=== PATIENT | female | born 1940 | race Caucasian/White ===

== ENCOUNTER → 2016-11-08 | Outpatient (CLI) | payer MEDICARE, BC | LOC: RAD 10:21 | DX: G62.9 Polyneuropathy, unspecified (principal); E78.2 Mixed hyperlipidemia; E61.1 Iron deficiency; M06.89 Other specified rheumatoid arthritis, multiple sites; M85.80 Other specified disorders of bone density and structure, unspecified site; E53.8 Deficiency of other specified B group vitamins ==

== ENCOUNTER 2016-11-11 07:29 | Outpatient (RCR) | payer MEDICARE, BC ==
[2014-04-18 10:28] VITALS: BP 129/68
== END 2016-12-16 11:39 | disposition home or self-care (01) ==
LOC: PT 07:29
DX: R53.1 Weakness (principal); M54.2 Cervicalgia; M06.89 Other specified rheumatoid arthritis, multiple sites

== ENCOUNTER → 2016-11-24 | Outpatient (CLI) | payer MEDICARE, BC | LOC: RAD 10:26 | DX: M85.80 Other specified disorders of bone density and structure, unspecified site (principal); M81.0 Age-related osteoporosis without current pathological fracture ==

== ENCOUNTER → 2016-11-24 | Outpatient (CLI) | payer MEDICARE, BC | LOC: MAMMO 10:27 | DX: Z12.31 Encounter for screening mammogram for malignant neoplasm of breast (principal); C50.911 Malignant neoplasm of unspecified site of right female breast; Z90.11 Acquired absence of right breast and nipple | CPT/HCPCS: G0202 ==

== ENCOUNTER → 2016-11-30 | Outpatient (CLI) | payer MEDICARE, BC | LOC: LAB 11:37 | DX: R30.0 Dysuria (principal) ==

== ENCOUNTER → 2017-02-09 | Outpatient (CLI) | payer MEDICARE, BC ==
[2014-04-18 10:28] VITALS: BP 129/68
== END ==
LOC: RAD 12:13
DX: R05 Cough (principal); R06.02 Shortness of breath

== ENCOUNTER → 2017-04-22 | Outpatient (CLI) | payer MEDICARE, BC ==
[2014-04-18 10:28] VITALS: BP 129/68
== END ==
LOC: LAB 13:24
DX: L99 Other disorders of skin and subcutaneous tissue in diseases classified elsewhere (principal)

== ENCOUNTER 2017-12-18 14:00 | Emergency (ER) | payer MEDICARE, BC ==
[~2017-12-18] VITALS: Ht 160 cm; Wt 74.1 kg
[2017-12-18] MEDS ORDERED: CALCIUM500 M1 (14:19)
[2017-12-18] MEDS ORDERED: TEMAZEPAM7.5 M1 (14:19)
[2017-12-18] MEDS ORDERED: D-1000 185 MG-11 TAB (14:19)
[2017-12-18] MEDS ORDERED: MUCINEX 60600 MG/TA1 PO (14:20)
[2017-12-18 14:54] LABS: EOS % 0.3 % (1.0-5.0); HEMATOCRIT 38.3 % (37.0-47.0); HEMOGLOBIN 12.7 g/dL (12.5-16.0); LYMPH# 1.5 (1.50-4.00); MEAN CELL VOLUME 87 fl (78-100); MEAN CORPUSCULAR HEMOGLOBIN 29 pg (27-31); MEAN CORPUSCULAR HGB CONC 33 g/dL (33-37); MEAN PLATELET VOLUME 9.8 fl (7.4-10.4); MONO # 0.6 (0.20-0.80); NEU # 3.9 (1.40-6.50); PLATELET COUNT 258 K/mm3 (130-400); RED BLOOD COUNT 4.43 M/mm3 (4.10-5.30); RED CELL DISTRIBUTION WIDTH 13.1 % (11.5-14.5)
[2017-12-18 15:04] LABS: BUN/CREATININE RATIO 13.2 (6.0-26.0); CALCIUM 9.6 mg/dL (8.4-10.2); POTASSIUM 3.6 mmol/L (3.6-5.0)
[2017-12-18 16:02] VITALS: BP 103/56
[2017-12-18] MEDS ORDERED: PREDNISONE20 M1 PO (16:03)
[2017-12-18] MEDS ORDERED: CEPHALEXIN500 M2 PO (16:03)
== END 2017-12-18 16:24 | disposition home or self-care (01) ==
LOC: ED 14:00
PROVIDERS: Family Medicine
DX: J44.1 Chronic obstructive pulmonary disease with (acute) exacerbation (principal); Z87.891 Personal history of nicotine dependence; K30 Functional dyspepsia

== ENCOUNTER → 2017-12-29 | Outpatient (CLI) | payer MEDICARE, BC ==
[~2017-12-29] VITALS: Ht 165.1 cm; Wt 72.7 kg
[~2017-12-29] MED LIST: CALCIUM500 M1; CEPHALEXIN500 M2 PO; D-1000 185 MG-11 TAB; MUCINEX 60600 MG/TA1 PO; PREDNISONE20 M1 PO; TEMAZEPAM7.5 M1
[2017-12-29 11:13] LABS: HEMATOCRIT 39.6 % (37.0-47.0); HEMOGLOBIN 12.4 g/dL (12.5-16.0); MEAN CELL VOLUME 90 fl (78-100); MEAN CORPUSCULAR HEMOGLOBIN 28 pg (27-31); MEAN CORPUSCULAR HGB CONC 31 g/dL (33-37); MEAN PLATELET VOLUME 9.2 fl (7.4-10.4); PLATELET COUNT 288 K/mm3 (130-400); RED BLOOD COUNT 4.38 M/mm3 (4.10-5.30); RED CELL DISTRIBUTION WIDTH 14.4 % (11.5-14.5); WHITE BLOOD COUNT 9.9 K/mm3 (4.8-10.8)
[2017-12-29 11:30] LABS: BUN/CREATININE RATIO 17.2 (6.0-26.0); CALCIUM 9.3 mg/dL (8.4-10.2); D-DIMER 3.11 mg/L FEU (0.15-0.50); POTASSIUM 3.7 mmol/L (3.6-5.0); TOTAL BILIRUBIN 0.7 mg/dL (0.2-1.3); TOTAL PROTEIN 7.9 g/dL (6.3-8.2)
[2017-12-29 11:40] VITALS: BP 140/61
[2017-12-29 11:40] LABS: TROPONIN-I < 0.03 ng/mL (0.00-0.06)
[2017-12-29 12:33] LABS: LYMPHOCYTE 15 % (20-51); MONOCYTE 5 % (3-10); NEUTROPHILS 78 % (42-75)
[2017-12-29 12:35] LABS: ERYTHROCYTE SEDIMENTATION RATE 13 mm/hr (0-30)
== END ==
LOC: LAB 10:48
PROVIDERS: Nurse Practitioner Family
DX: J44.9 Chronic obstructive pulmonary disease, unspecified (principal); I51.7 Cardiomegaly; I77.810 Thoracic aortic ectasia; R91.1 Solitary pulmonary nodule; Z87.19 Personal history of other diseases of the digestive system
CPT/HCPCS: Q9967

== ENCOUNTER → 2018-01-31 | Outpatient (CLI) | payer MEDICARE, BC ==
[2017-12-29 11:40] VITALS: BP 140/61
[2018-01-31 14:01] LABS: EOS # 0.1 (0.04-0.40); EOS % 1.1 % (1.0-5.0); HEMOGLOBIN 12.5 g/dL (12.5-16.0); LYMPH# 1.6 (1.50-4.00); MEAN CELL VOLUME 89 fl (78-100); MEAN CORPUSCULAR HEMOGLOBIN 28 pg (27-31); MEAN CORPUSCULAR HGB CONC 31 g/dL (33-37); MEAN PLATELET VOLUME 9.4 fl (7.4-10.4); MONO # 0.5 (0.20-0.80); NEU # 3.1 (1.40-6.50); PLATELET COUNT 269 K/mm3 (130-400); RED BLOOD COUNT 4.52 M/mm3 (4.10-5.30); RED CELL DISTRIBUTION WIDTH 14.3 % (11.5-14.5); WHITE BLOOD COUNT 5.3 K/mm3 (4.8-10.8)
[2018-01-31 14:14] LABS: ALBUMIN 4.3 g/dL (3.5-5.0); BUN/CREATININE RATIO 16.9 (6.0-26.0); CALCIUM 9.5 mg/dL (8.4-10.2); POTASSIUM 4.2 mmol/L (3.6-5.0); TOTAL BILIRUBIN 0.6 mg/dL (0.2-1.3); TOTAL PROTEIN 8.6 g/dL (6.3-8.2)
[2018-01-31 21:25] LABS: ERYTHROCYTE SEDIMENTATION RATE 30 mm/hr (0-30)
== END ==
LOC: LAB 13:47
PROVIDERS: Internal Medicine
DX: K74.3 Primary biliary cirrhosis (principal); E61.1 Iron deficiency; E53.8 Deficiency of other specified B group vitamins; R73.02 Impaired glucose tolerance (oral); M81.0 Age-related osteoporosis without current pathological fracture; E78.5 Hyperlipidemia, unspecified; M19.90 Unspecified osteoarthritis, unspecified site

== ENCOUNTER → 2019-03-26 | Outpatient (CLI) | payer MEDICARE, BC ==
[2017-12-29 11:40] VITALS: BP 140/61
[2019-03-26 11:27] LABS: HEMATOCRIT 29.6 % (37.0-47.0); HEMOGLOBIN 8.7 g/dL (12.5-16.0); MEAN CELL VOLUME 89 fl (78-100); MEAN CORPUSCULAR HEMOGLOBIN 26 pg (27-31); MEAN PLATELET VOLUME 8.6 fl (7.4-10.4); PLATELET COUNT 474 K/mm3 (130-400); RED BLOOD COUNT 3.31 M/mm3 (4.10-5.30)
[2019-03-26 11:44] LABS: ALBUMIN 3.8 g/dL (3.4-4.8)
[2019-03-26 11:45] LABS: POTASSIUM 3.4 mmol/L (3.5-5.1)
[2019-03-26 11:46] LABS: CALCIUM 9.3 mg/dL (8.3-10.5)
[2019-03-26 11:47] LABS: TOTAL PROTEIN 7.2 g/dL (6.2-8.1)
[2019-03-26 11:49] LABS: TOTAL BILIRUBIN 0.6 mg/dL (0.2-1.2)
[2019-03-26 12:04] LABS: BAND 1 % (0-10); LYMPHOCYTE 4 % (20-51); MEAN CORPUSCULAR HGB CONC 29 g/dL (33-37); MONOCYTE 5 % (3-10); NEUTROPHILS 90 % (42-75); RED CELL DISTRIBUTION WIDTH 18.4 % (11.5-14.5)
== END ==
LOC: LAB 11:14
PROVIDERS: Internal Medicine
DX: I71.4 Abdominal aortic aneurysm, without rupture (principal); M06.9 Rheumatoid arthritis, unspecified; D64.9 Anemia, unspecified

== ENCOUNTER → 2019-04-27 | Outpatient (CLI) | payer MEDICARE, BC ==
[2017-12-29 11:40] VITALS: BP 140/61
[2019-04-27 11:34] LABS: EOS % 0.4 % (1.0-5.0); HEMATOCRIT 36.5 % (37.0-47.0); HEMOGLOBIN 10.8 g/dL (12.5-16.0); LYMPH# 1.2 (1.50-4.00); MEAN CELL VOLUME 85 fl (78-100); MEAN CORPUSCULAR HEMOGLOBIN 25 pg (27-31); MEAN CORPUSCULAR HGB CONC 30 g/dL (33-37); MEAN PLATELET VOLUME 9.5 fl (7.4-10.4); MONO # 0.8 (0.20-0.80); NEU # 5.2 (1.40-6.50); PLATELET COUNT 254 K/mm3 (130-400); RED CELL DISTRIBUTION WIDTH 15.4 % (11.5-14.5); WHITE BLOOD COUNT 7.2 K/mm3 (4.8-10.8)
[2019-04-27 11:45] LABS: ALBUMIN 4.2 g/dL (3.4-4.8); POTASSIUM 3.8 mmol/L (3.5-5.1)
[2019-04-27 11:47] LABS: CALCIUM 9.9 mg/dL (8.3-10.5)
[2019-04-27 11:48] LABS: TOTAL PROTEIN 7.6 g/dL (6.2-8.1)
[2019-04-27 11:50] LABS: TOTAL BILIRUBIN 0.4 mg/dL (0.2-1.2); URINE APPEARANCE CLEAR; URINE BILIRUBIN NEGATIVE (NEGATIVE); URINE BLOOD NEGATIVE (NEGATIVE); URINE COLOR YELLOW; URINE GLUCOSE NEGATIVE (NEGATIVE); URINE KETONE NEGATIVE (NEGATIVE); URINE LEUKOCYTE ESTERASE 1+ (NEGATIVE); URINE NITRATE NEGATIVE (NEGATIVE); URINE PROTEIN(semi-quant) TRACE mg/dL (NEGATIVE); URINE UROBILINOGEN NORMAL (NORMAL)
== END ==
LOC: LAB 11:10
PROVIDERS: Internal Medicine
DX: I71.4 Abdominal aortic aneurysm, without rupture (principal); D64.9 Anemia, unspecified; M06.9 Rheumatoid arthritis, unspecified; N30.00 Acute cystitis without hematuria

== ENCOUNTER → 2019-06-14 | Outpatient (CLI) | payer MEDICARE, BC ==
[2017-12-29 11:40] VITALS: BP 140/61
== END ==
LOC: RAD 06-07 07:00
DX: G31.9 Degenerative disease of nervous system, unspecified (principal)
CPT/HCPCS: A9585

== ENCOUNTER → 2019-09-11 | Outpatient (CLI) | payer MEDICARE, BC ==
[2019-08-03 14:05] VITALS: BP 134/74
[~2019-09-11] MED LIST changes: +CYANOCOBAL1000 MCG/1 SQ; +CYCLOBENZ5 MG PO; +CYMBALTA30 M1 PO; -D-1000 185 MG-11 TAB; +GOOD NEIGHBOR P20 M1 PO; +IPRATROPIUM BROM3 M1 IH; +KLONOPIN 0.5MG0.5 MG PO; +LEVAQUIN 750MG750 M1 PO; +LOW DOSE ASPIRI81 M1 PO; +PROVENTIL0.09 MG/A1 IH; +RITUXAN 10100 MG/10; +TRAMADOL 50 MG TAB PO; +VITAMIN D31000 UNIT PO
[2019-09-11 17:05] LABS: HEMOGLOBIN 10.4 g/dL (12.5-16.0); MEAN CELL VOLUME 77 fl (78-100); MEAN CORPUSCULAR HGB CONC 30 g/dL (33-37); MEAN PLATELET VOLUME 9.8 fl (7.4-10.4); PLATELET COUNT 364 K/mm3 (130-400); RED BLOOD COUNT 4.53 M/mm3 (4.10-5.30); WHITE BLOOD COUNT 9.9 K/mm3 (4.8-10.8)
[2019-09-11 17:11] LABS: MEAN CORPUSCULAR HEMOGLOBIN 23 pg (27-31); RED CELL DISTRIBUTION WIDTH 19.1 % (11.5-14.5)
[2019-09-11 17:13] LABS: ALBUMIN 3.6 g/dL (3.4-4.8); POTASSIUM 4.1 mmol/L (3.5-5.1)
[2019-09-11 17:15] LABS: CALCIUM 9.4 mg/dL (8.3-10.5)
[2019-09-11 17:16] LABS: TOTAL PROTEIN 6.8 g/dL (6.2-8.1)
[2019-09-11 17:18] LABS: TOTAL BILIRUBIN 0.3 mg/dL (0.2-1.2)
[2019-09-11 17:22] LABS: MAGNESIUM 1.44 mg/dL (1.60-2.60)
[2019-09-11 17:24] LABS: LYMPHOCYTE 11 % (20-51); MONOCYTE 8 % (3-10); NEUTROPHILS 79 % (42-75)
[2019-09-11 18:01] LABS: ERYTHROCYTE SEDIMENTATION RATE 21 mm/hr (0-30)
== END ==
LOC: RAD 16:16
PROVIDERS: Internal Medicine
DX: J42 Unspecified chronic bronchitis (principal); J81.1 Chronic pulmonary edema; J92.9 Pleural plaque without asbestos; Z90.11 Acquired absence of right breast and nipple

== ENCOUNTER → 2019-09-18 | Outpatient (CLI) | payer MEDICARE, BC ==
[2019-08-03 14:05] VITALS: BP 134/74
== END ==
LOC: LAB 16:48
DX: R06.02 Shortness of breath (principal)

== ENCOUNTER → 2019-09-24 | Outpatient (CLI) | payer MEDICARE, BC ==
[2019-08-03 14:05] VITALS: BP 134/74
== END ==
LOC: VAS 16:27 → RAD 16:45
DX: I34.0 Nonrheumatic mitral (valve) insufficiency (principal)

== ENCOUNTER → 2019-10-09 | Outpatient (CLI) | payer MEDICARE, BC ==
[2019-08-03 14:05] VITALS: BP 134/74
[2019-10-09 17:00] LABS: EOS # 0.1 (0.04-0.40); EOS % 1.4 % (1.0-5.0); HEMATOCRIT 40.8 % (37.0-47.0); HEMOGLOBIN 12.5 g/dL (12.5-16.0); LYMPH# 1.9 (1.50-4.00); MEAN CELL VOLUME 76 fl (78-100); MEAN CORPUSCULAR HGB CONC 31 g/dL (33-37); MEAN PLATELET VOLUME 10.1 fl (7.4-10.4); MONO # 0.7 (0.20-0.80); NEU # 5.2 (1.40-6.50); PLATELET COUNT 319 K/mm3 (130-400); RED BLOOD COUNT 5.34 M/mm3 (4.10-5.30); WHITE BLOOD COUNT 7.9 K/mm3 (4.8-10.8)
[2019-10-09 17:02] LABS: MEAN CORPUSCULAR HEMOGLOBIN 23 pg (27-31); RED CELL DISTRIBUTION WIDTH 18.4 % (11.5-14.5)
[2019-10-09 17:12] LABS: ALBUMIN 4.2 g/dL (3.4-4.8); POTASSIUM 4.7 mmol/L (3.5-5.1)
[2019-10-09 17:13] LABS: CALCIUM 9.8 mg/dL (8.3-10.5)
[2019-10-09 17:14] LABS: TOTAL PROTEIN 8.3 g/dL (6.2-8.1)
[2019-10-09 17:16] LABS: TOTAL BILIRUBIN 0.2 mg/dL (0.2-1.2)
[2019-10-09 17:21] LABS: MAGNESIUM 1.84 mg/dL (1.60-2.60)
== END ==
LOC: LAB 16:47
PROVIDERS: Internal Medicine
DX: M06.9 Rheumatoid arthritis, unspecified (principal); I42.7 Cardiomyopathy due to drug and external agent

== ENCOUNTER → 2019-10-23 | Outpatient (CLI) | payer MEDICARE, BC ==
[2019-08-03 14:05] VITALS: BP 134/74
[2019-10-23 12:12] LABS: POTASSIUM 3.6 mmol/L (3.5-5.1)
[2019-10-23 12:14] LABS: CALCIUM 10.2 mg/dL (8.3-10.5)
[2019-10-23 12:21] LABS: MAGNESIUM 1.59 mg/dL (1.60-2.60)
== END ==
LOC: LAB 11:46
PROVIDERS: Internal Medicine
DX: I25.10 Atherosclerotic heart disease of native coronary artery without angina pectoris (principal); M81.0 Age-related osteoporosis without current pathological fracture; I42.7 Cardiomyopathy due to drug and external agent; M06.9 Rheumatoid arthritis, unspecified; G62.9 Polyneuropathy, unspecified

== ENCOUNTER → 2019-11-05 | Outpatient (CLI) | payer MEDICARE, BC ==
[2019-08-03 14:05] VITALS: BP 134/74
[2019-11-05 11:07] LABS: EOS # 0.1 (0.04-0.40); EOS % 1.1 % (1.0-5.0); HEMATOCRIT 37.8 % (37.0-47.0); HEMOGLOBIN 11.7 g/dL (12.5-16.0); LYMPH# 1.8 (1.50-4.00); MEAN CELL VOLUME 78 fl (78-100); MEAN CORPUSCULAR HGB CONC 31 g/dL (33-37); MEAN PLATELET VOLUME 9.5 fl (7.4-10.4); MONO # 0.9 (0.20-0.80); NEU # 7.5 (1.40-6.50); PLATELET COUNT 361 K/mm3 (130-400); RED BLOOD COUNT 4.82 M/mm3 (4.10-5.30); WHITE BLOOD COUNT 10.3 K/mm3 (4.8-10.8)
[2019-11-05 11:18] LABS: MEAN CORPUSCULAR HEMOGLOBIN 24 pg (27-31); RED CELL DISTRIBUTION WIDTH 20.2 % (11.5-14.5)
[2019-11-05 11:21] LABS: CALCIUM 10.3 mg/dL (8.3-10.5)
[2019-11-05 11:22] LABS: PROTHROMBIN TIME 9.9 SECONDS (9.0-12.0); TOTAL PROTEIN 7.4 g/dL (6.2-8.1)
[2019-11-05 11:24] LABS: TOTAL BILIRUBIN 0.3 mg/dL (0.2-1.2)
[2019-11-05 11:28] LABS: MAGNESIUM 1.63 mg/dL (1.60-2.60)
[2019-11-05 11:38] LABS: URINE APPEARANCE CLEAR; URINE COLOR YELLOW
[2019-11-05 11:39] LABS: URINE BILIRUBIN NEGATIVE (NEGATIVE); URINE BLOOD NEGATIVE (NEGATIVE); URINE GLUCOSE NEGATIVE (NEGATIVE); URINE KETONE NEGATIVE (NEGATIVE); URINE LEUKOCYTE ESTERASE 1+ (NEGATIVE); URINE MUCUS PRESENT (NOT PRESENT); URINE NITRATE NEGATIVE (NEGATIVE); URINE PROTEIN(semi-quant) NEGATIVE (NEGATIVE); URINE UROBILINOGEN NORMAL (NORMAL)
[2019-11-05 12:02] LABS: ERYTHROCYTE SEDIMENTATION RATE 42 mm/hr (0-30)
== END ==
LOC: LAB 10:49
PROVIDERS: Internal Medicine
DX: Z01.818 Encounter for other preprocedural examination (principal); J18.1 Lobar pneumonia, unspecified organism; M19.011 Primary osteoarthritis, right shoulder

== ENCOUNTER → 2019-12-07 | Outpatient (CLI) | payer MEDICARE, BC ==
[2019-08-03 14:05] VITALS: BP 134/74
[2019-12-07 10:51] LABS: EOS # 0.1 (0.04-0.40); EOS % 1.3 % (1.0-5.0); HEMATOCRIT 32.1 % (37.0-47.0); HEMOGLOBIN 9.7 g/dL (12.5-16.0); LYMPH# 1.1 (1.50-4.00); MEAN CELL VOLUME 84 fl (78-100); MEAN CORPUSCULAR HEMOGLOBIN 25 pg (27-31); MEAN CORPUSCULAR HGB CONC 30 g/dL (33-37); MEAN PLATELET VOLUME 9.4 fl (7.4-10.4); MONO # 0.7 (0.20-0.80); NEU # 5.5 (1.40-6.50); PLATELET COUNT 286 K/mm3 (130-400); RED BLOOD COUNT 3.82 M/mm3 (4.10-5.30); RED CELL DISTRIBUTION WIDTH 22.3 % (11.5-14.5); WHITE BLOOD COUNT 7.4 K/mm3 (4.8-10.8)
[2019-12-07 11:32] LABS: ALBUMIN 3.7 g/dL (3.4-4.8)
[2019-12-07 11:33] LABS: POTASSIUM 4.2 mmol/L (3.5-5.1)
[2019-12-07 11:34] LABS: CALCIUM 9.9 mg/dL (8.3-10.5)
[2019-12-07 11:37] LABS: TOTAL BILIRUBIN 0.5 mg/dL (0.2-1.2)
[2019-12-07 11:41] LABS: MAGNESIUM 1.8 mg/dL (1.60-2.60)
== END ==
LOC: LAB 10:33
PROVIDERS: Internal Medicine
DX: M06.9 Rheumatoid arthritis, unspecified (principal); I42.7 Cardiomyopathy due to drug and external agent; M19.011 Primary osteoarthritis, right shoulder

== ENCOUNTER → 2019-12-19 | Outpatient (CLI) | payer MEDICARE, BC ==
[2019-08-03 14:05] VITALS: BP 134/74
[2019-12-19 15:41] LABS: EOS # 0.1 (0.04-0.40); EOS % 0.4 % (1.0-5.0); HEMATOCRIT 36.5 % (37.0-47.0); HEMOGLOBIN 11.1 g/dL (12.5-16.0); LYMPH# 1.9 (1.50-4.00); MEAN CELL VOLUME 87 fl (78-100); MEAN CORPUSCULAR HEMOGLOBIN 26 pg (27-31); MEAN CORPUSCULAR HGB CONC 30 g/dL (33-37); MEAN PLATELET VOLUME 9.4 fl (7.4-10.4); MONO # 0.9 (0.20-0.80); NEU # 9.6 (1.40-6.50); PLATELET COUNT 429 K/mm3 (130-400); RED BLOOD COUNT 4.22 M/mm3 (4.10-5.30); RED CELL DISTRIBUTION WIDTH 21.1 % (11.5-14.5); WHITE BLOOD COUNT 12.5 K/mm3 (4.8-10.8)
[2019-12-19 15:53] LABS: POTASSIUM 3.8 mmol/L (3.5-5.1)
[2019-12-19 15:54] LABS: CALCIUM 9.9 mg/dL (8.3-10.5)
[2019-12-19 15:55] LABS: TOTAL PROTEIN 7.6 g/dL (6.2-8.1)
[2019-12-19 15:57] LABS: TOTAL BILIRUBIN 0.4 mg/dL (0.2-1.2)
[2019-12-19 16:05] LABS: URINE COLOR LT YELLOW
[2019-12-19 16:09] LABS: URINE APPEARANCE CLEAR; URINE BILIRUBIN NEGATIVE (NEGATIVE); URINE BLOOD NEGATIVE (NEGATIVE); URINE GLUCOSE NEGATIVE (NEGATIVE); URINE KETONE NEGATIVE (NEGATIVE); URINE LEUKOCYTE ESTERASE NEGATIVE (NEGATIVE); URINE NITRATE NEGATIVE (NEGATIVE); URINE PROTEIN(semi-quant) NEGATIVE (NEGATIVE); URINE UROBILINOGEN NORMAL (NORMAL); URINE WBC 0-1 /hpf (0-3)
== END ==
LOC: LAB 14:42 → RAD 14:42
PROVIDERS: Family Medicine
DX: J98.11 Atelectasis (principal); J43.1 Panlobular emphysema; M79.602 Pain in left arm; W19.XXXA Unspecified fall, initial encounter

== ENCOUNTER → 2019-12-27 | Outpatient (CLI) | payer MEDICARE, BC ==
[2019-08-03 14:05] VITALS: BP 134/74
== END ==
LOC: RAD 15:01
DX: J43.1 Panlobular emphysema (principal); R07.81 Pleurodynia; Z98.890 Other specified postprocedural states

== ENCOUNTER → 2020-02-08 | Outpatient (CLI) | payer MEDICARE, BC ==
[2019-08-03 14:05] VITALS: BP 134/74
[2020-02-08 13:07] LABS: POTASSIUM 3.7 mmol/L (3.5-5.1)
[2020-02-08 13:08] LABS: CALCIUM 9.8 mg/dL (8.3-10.5)
[2020-02-08 13:09] LABS: TOTAL PROTEIN 7.4 g/dL (6.2-8.1)
[2020-02-08 13:11] LABS: TOTAL BILIRUBIN 0.3 mg/dL (0.2-1.2)
[2020-02-08 13:15] LABS: MAGNESIUM 1.83 mg/dL (1.60-2.60)
[2020-02-08 13:16] LABS: EOS # 0.1 (0.04-0.40); EOS % 2.1 % (1.0-5.0); HEMATOCRIT 37.3 % (37.0-47.0); HEMOGLOBIN 11.5 g/dL (12.5-16.0); LYMPH# 1.3 (1.50-4.00); MEAN CELL VOLUME 90 fl (78-100); MEAN CORPUSCULAR HEMOGLOBIN 28 pg (27-31); MEAN CORPUSCULAR HGB CONC 31 g/dL (33-37); MEAN PLATELET VOLUME 10.1 fl (7.4-10.4); MONO # 0.5 (0.20-0.80); NEU # 3.4 (1.40-6.50); PLATELET COUNT 268 K/mm3 (130-400); RED BLOOD COUNT 4.14 M/mm3 (4.10-5.30); RED CELL DISTRIBUTION WIDTH 14.3 % (11.5-14.5); WHITE BLOOD COUNT 5.3 K/mm3 (4.8-10.8)
== END ==
LOC: RAD 12:33
PROVIDERS: Internal Medicine
DX: I42.7 Cardiomyopathy due to drug and external agent (principal); M06.9 Rheumatoid arthritis, unspecified; M19.011 Primary osteoarthritis, right shoulder; Z90.10 Acquired absence of unspecified breast and nipple; Z96.611 Presence of right artificial shoulder joint; Z90.89 Acquired absence of other organs

== ENCOUNTER 2020-04-18 13:00 | Outpatient (RCR) | payer MEDICARE, BC ==
[2019-08-03 14:05] VITALS: BP 134/74
== END 2020-04-18 13:30 | disposition still patient (30) ==
LOC: PT 13:00
DX: M06.09 Rheumatoid arthritis without rheumatoid factor, multiple sites (principal); M19.011 Primary osteoarthritis, right shoulder; Z96.611 Presence of right artificial shoulder joint

== ENCOUNTER → 2020-10-30 | Outpatient (CLI) | payer MEDICARE, BC ==
[2019-08-03 14:05] VITALS: BP 134/74
[2020-10-30 13:27] LABS: ALBUMIN 3.9 g/dL (3.4-4.8)
[2020-10-30 13:41] LABS: RED BLOOD COUNT 3.68 M/mm3 (4.10-5.30); WHITE BLOOD COUNT 4.6 K/mm3 (4.8-10.8)
[2020-10-30 13:42] LABS: HEMATOCRIT 36.5 % (37.0-47.0); HEMOGLOBIN 11.1 g/dL (12.5-16.0); RED CELL DISTRIBUTION WIDTH 14.8 % (11.5-14.5)
[2020-10-30 13:43] LABS: MEAN PLATELET VOLUME 9.8 fl (7.4-10.4)
== END ==
LOC: LAB 13:00
PROVIDERS: Internal Medicine Rheumatology
DX: Z79.899 Other long term (current) drug therapy (principal)

== ENCOUNTER → 2021-02-10 | Outpatient (CLI) | payer MEDICARE, BC ==
[2021-02-10 15:55] LABS: BASO # 0.03 (0.02-0.10); EOS # 0.06 (0.04-0.40); EOS % 1.1 % (1.0-5.0); HEMATOCRIT 35.4 % (37.0-47.0); HEMOGLOBIN 11.1 g/dL (12.5-16.0); LYMPH# 1.35 (1.50-4.00); MEAN CELL VOLUME 95 fl (78-100); MEAN CORPUSCULAR HEMOGLOBIN 30 pg (27-31); MEAN CORPUSCULAR HGB CONC 31 g/dL (33-37); MONO # 0.35 (0.20-0.80); NEU # 3.66 (1.40-6.50); PLATELET COUNT 205 K/mm3 (130-400); RED BLOOD COUNT 3.72 M/mm3 (4.10-5.30); RED CELL DISTRIBUTION WIDTH 14.2 % (11.5-14.5); WHITE BLOOD COUNT 5.5 K/mm3 (4.8-10.8)
[2021-02-10 16:05] LABS: POTASSIUM 3.8 mmol/L (3.5-5.1)
[2021-02-10 16:06] LABS: CALCIUM 9.3 mg/dL (8.3-10.5)
[2021-02-10 16:07] LABS: TOTAL PROTEIN 7.2 g/dL (6.2-8.1)
[2021-02-10 16:09] LABS: TOTAL BILIRUBIN 0.3 mg/dL (0.2-1.2)
[2021-02-10 16:14] LABS: MAGNESIUM 1.8 mg/dL (1.60-2.60)
[2021-02-10 17:20] LABS: ERYTHROCYTE SEDIMENTATION RATE 35 mm/hr (0-30)
== END ==
LOC: LAB 15:35
PROVIDERS: Internal Medicine
DX: I25.10 Atherosclerotic heart disease of native coronary artery without angina pectoris (principal); M06.9 Rheumatoid arthritis, unspecified; K90.9 Intestinal malabsorption, unspecified

== ENCOUNTER → 2021-02-24 | Outpatient (CLI) | payer MEDICARE, BC | LOC: MAMMO 11:30 | DX: Z12.31 Encounter for screening mammogram for malignant neoplasm of breast (principal); Z90.12 Acquired absence of left breast and nipple ==

== ENCOUNTER → 2021-05-25 | Outpatient (CLI) | payer MEDICARE, BC ==
[2021-05-25 08:42] LABS: BASO # 0.02 (0.02-0.10); EOS # 0.08 (0.04-0.40); EOS % 1.5 % (1.0-5.0); HEMATOCRIT 37.4 % (37.0-47.0); HEMOGLOBIN 11.8 g/dL (12.5-16.0); LYMPH# 1.26 (1.50-4.00); MEAN CELL VOLUME 99 fl (78-100); MEAN CORPUSCULAR HEMOGLOBIN 31 pg (27-31); MEAN CORPUSCULAR HGB CONC 32 g/dL (33-37); MEAN PLATELET VOLUME 9.5 fl (7.4-10.4); MONO # 0.27 (0.20-0.80); NEU # 3.64 (1.40-6.50); PLATELET COUNT 211 K/mm3 (130-400); RED BLOOD COUNT 3.78 M/mm3 (4.10-5.30); RED CELL DISTRIBUTION WIDTH 14.2 % (11.5-14.5); WHITE BLOOD COUNT 5.3 K/mm3 (4.8-10.8)
[2021-05-25 08:52] LABS: ALBUMIN 4.2 g/dL (3.4-4.8)
[2021-05-25 08:53] LABS: POTASSIUM 4.2 mmol/L (3.5-5.1)
[2021-05-25 08:54] LABS: CALCIUM 10.3 mg/dL (8.3-10.5)
[2021-05-25 08:55] LABS: TOTAL PROTEIN 7.5 g/dL (6.2-8.1)
[2021-05-25 08:57] LABS: TOTAL BILIRUBIN 0.7 mg/dL (0.2-1.2)
[2021-05-25 09:25] LABS: URINE APPEARANCE CLEAR; URINE BILIRUBIN NEGATIVE (NEGATIVE); URINE BLOOD NEGATIVE (NEGATIVE); URINE COLOR YELLOW; URINE GLUCOSE NEGATIVE (NEGATIVE); URINE KETONE NEGATIVE (NEGATIVE); URINE LEUKOCYTE ESTERASE TRACE (NEGATIVE); URINE NITRATE NEGATIVE (NEGATIVE); URINE PROTEIN(semi-quant) NEGATIVE (NEGATIVE); URINE UROBILINOGEN NORMAL (NORMAL)
[2021-05-25 09:26] LABS: URINE MUCUS PRESENT (NOT PRESENT)
== END ==
LOC: LAB 08:17
PROVIDERS: Internal Medicine
DX: M06.9 Rheumatoid arthritis, unspecified (principal); K90.9 Intestinal malabsorption, unspecified; R10.84 Generalized abdominal pain
CPT/HCPCS: Q9967

== ENCOUNTER → 2021-08-25 | Outpatient (CLI) | payer MEDICARE, BC ==
[2021-08-25 13:19] LABS: BASO # 0.02 K/mm3 (0.02-0.10); EOS # 0.07 K/mm3 (0.04-0.40); EOS % 1.5 % (1.0-5.0); HEMATOCRIT 36.9 % (37.0-47.0); HEMOGLOBIN 11.3 g/dL (12.5-16.0); LYMPH# 1.36 K/mm3 (1.50-4.00); MEAN CELL VOLUME 100 fl (78-100); MEAN CORPUSCULAR HEMOGLOBIN 31 pg (27-31); MEAN CORPUSCULAR HGB CONC 31 g/dL (33-37); MEAN PLATELET VOLUME 9.3 fl (7.4-10.4); MONO # 0.33 K/mm3 (0.20-0.80); NEU # 2.81 K/mm3 (1.40-6.50); PLATELET COUNT 168 K/mm3 (130-400); RED CELL DISTRIBUTION WIDTH 14.1 % (11.5-14.5); WHITE BLOOD COUNT 4.6 K/mm3 (4.8-10.8)
== END ==
LOC: LAB 13:08
PROVIDERS: Internal Medicine
DX: E11.9 Type 2 diabetes mellitus without complications (principal)

== ENCOUNTER → 2021-09-10 | Outpatient (CLI) | payer MEDICARE, BC ==
[2021-09-10 16:36] LABS: HEMATOCRIT 36.4 % (37.0-47.0); HEMOGLOBIN 11.3 g/dL (12.5-16.0); MEAN PLATELET VOLUME 9.6 fl (7.4-10.4); RED BLOOD COUNT 3.67 M/mm3 (4.10-5.30); RED CELL DISTRIBUTION WIDTH 14.2 % (11.5-14.5); WHITE BLOOD COUNT 5.7 K/mm3 (4.8-10.8)
[2021-09-10 16:53] LABS: ALBUMIN 4.1 g/dL (3.4-4.8)
[2021-09-10 16:54] LABS: POTASSIUM 4.1 mmol/L (3.5-5.1)
[2021-09-10 16:55] LABS: CALCIUM 9.6 mg/dL (8.3-10.5)
== END ==
LOC: LAB 16:23
PROVIDERS: Internal Medicine Rheumatology
DX: I71.2 Thoracic aortic aneurysm, without rupture (principal); Z79.899 Other long term (current) drug therapy; Z86.79 Personal history of other diseases of the circulatory system

== ENCOUNTER → 2021-11-30 | Outpatient (CLI) | payer MEDICARE, BC ==
[2021-11-30 14:26] LABS: POTASSIUM 4.8 mmol/L (3.5-5.1)
[2021-11-30 14:27] LABS: CALCIUM 10.1 mg/dL (8.3-10.5)
== END ==
LOC: LAB 14:03
PROVIDERS: Internal Medicine Cardiovascular Disease
DX: Z98.890 Other specified postprocedural states (principal); Z86.79 Personal history of other diseases of the circulatory system

== ENCOUNTER → 2022-01-27 | Outpatient (CLI) | payer MEDICARE, BC ==
[2022-01-27 13:18] LABS: HEMATOCRIT 35.6 % (37.0-47.0); HEMOGLOBIN 11.2 g/dL (12.5-16.0); MEAN PLATELET VOLUME 9.5 fl (7.4-10.4); RED BLOOD COUNT 3.6 M/mm3 (4.10-5.30); RED CELL DISTRIBUTION WIDTH 14.3 % (11.5-14.5); WHITE BLOOD COUNT 4.5 K/mm3 (4.8-10.8)
[2022-01-27 13:27] LABS: ALBUMIN 4.1 g/dL (3.4-4.8)
== END ==
LOC: LAB 12:44
PROVIDERS: Internal Medicine Rheumatology
DX: Z79.899 Other long term (current) drug therapy (principal)

== ENCOUNTER → 2022-03-22 | Outpatient (CLI) | payer MEDICARE, BC ==
[2022-03-22 15:00] LABS: BASO # 0.01 K/mm3 (0.02-0.10); EOS # 0.07 K/mm3 (0.04-0.40); EOS % 1.4 % (1.0-5.0); HEMATOCRIT 36.1 % (37.0-47.0); HEMOGLOBIN 11.2 g/dL (12.5-16.0); LYMPH# 1.54 K/mm3 (1.50-4.00); MEAN CELL VOLUME 101 fl (78-100); MEAN CORPUSCULAR HEMOGLOBIN 31 pg (27-31); MEAN CORPUSCULAR HGB CONC 31 g/dL (33-37); MEAN PLATELET VOLUME 9.8 fl (7.4-10.4); MONO # 0.21 K/mm3 (0.20-0.80); PLATELET COUNT 205 K/mm3 (130-400); RED BLOOD COUNT 3.58 M/mm3 (4.10-5.30); WHITE BLOOD COUNT 4.9 K/mm3 (4.8-10.8)
[2022-03-22 15:12] LABS: ALBUMIN 4.2 g/dL (3.4-4.8); POTASSIUM 4.4 mmol/L (3.5-5.1)
[2022-03-22 15:13] LABS: CALCIUM 9.9 mg/dL (8.3-10.5)
[2022-03-22 15:15] LABS: TOTAL PROTEIN 7.5 g/dL (6.2-8.1)
[2022-03-22 15:17] LABS: TOTAL BILIRUBIN 0.4 mg/dL (0.2-1.2)
[2022-03-22 15:21] LABS: MAGNESIUM 1.97 mg/dL (1.60-2.60)
[2022-03-22 16:55] LABS: ERYTHROCYTE SEDIMENTATION RATE 20 mm/hr (0-30)
== END ==
LOC: LAB 14:39
PROVIDERS: Internal Medicine
DX: Z12.31 Encounter for screening mammogram for malignant neoplasm of breast (principal); M06.9 Rheumatoid arthritis, unspecified; K90.9 Intestinal malabsorption, unspecified; I25.10 Atherosclerotic heart disease of native coronary artery without angina pectoris; C50.919 Malignant neoplasm of unspecified site of unspecified female breast; M81.0 Age-related osteoporosis without current pathological fracture; J43.9 Emphysema, unspecified; N81.10 Cystocele, unspecified

== ENCOUNTER → 2022-06-15 | Outpatient (CLI) | payer MEDICARE, BC | LOC: RAD 12:39 | DX: M17.11 Unilateral primary osteoarthritis, right knee (principal); M20.41 Other hammer toe(s) (acquired), right foot; M11.261 Other chondrocalcinosis, right knee ==

== ENCOUNTER → 2022-06-29 | Outpatient (CLI) | payer MEDICARE, BC | LOC: LAB 11:31 | DX: Z79.899 Other long term (current) drug therapy (principal) ==

== ENCOUNTER → 2022-09-23 | Outpatient (CLI) | payer MEDICARE, BC ==
[~2022-09-23] MED LIST changes: +ALBUTEROL2.5 MG/3 M IH; +BUDESONIDE0.5 MG/2 M IH; +CETIRIZINE HCL10 MG PO; +CLONAZEPAM0.5 M1 PO; +COLACE100 M1 PO; +DAILY VITAMIN1 EAC1 PO; +FOLIC ACID1 MG PO; +FOSAMAX 70MG TA70 MG PO; +METHOTREXATE2.5 MG PO; +NU-MAG71.5 MG PO; +PERFOROMIS20 MCG/21 IH; +PRILOSEC 20MG20 MG PO; +TOPROL XL 25MG25 MG PO; +VITAMIN D325 MC6 PO
[2022-09-23 12:45] LABS: BASO # 0.04 K/mm3 (0.02-0.10); EOS # 0.15 K/mm3 (0.04-0.40); HEMATOCRIT 32.5 % (37.0-47.0); HEMOGLOBIN 10.3 g/dL (12.5-16.0); LYMPH# 1.09 K/mm3 (1.50-4.00); MEAN CELL VOLUME 98 fl (78-100); MEAN CORPUSCULAR HEMOGLOBIN 31 pg (27-31); MEAN CORPUSCULAR HGB CONC 32 g/dL (33-37); MEAN PLATELET VOLUME 9.4 fl (7.4-10.4); MONO # 0.39 K/mm3 (0.20-0.80); NEU # 5.79 K/mm3 (1.40-6.50); PLATELET COUNT 297 K/mm3 (130-400); RED BLOOD COUNT 3.32 M/mm3 (4.10-5.30); RED CELL DISTRIBUTION WIDTH 13.7 % (11.5-14.5); WHITE BLOOD COUNT 7.5 K/mm3 (4.8-10.8)
[2022-09-23 12:50] LABS: ALBUMIN 3.8 g/dL (3.4-4.8)
[2022-09-23 12:51] LABS: CALCIUM 9.8 mg/dL (8.3-10.5)
[2022-09-23 12:52] LABS: TOTAL PROTEIN 7.2 g/dL (6.2-8.1)
[2022-09-23 12:54] LABS: TOTAL BILIRUBIN 0.4 mg/dL (0.2-1.2)
[2022-09-23 12:59] LABS: MAGNESIUM 1.56 mg/dL (1.60-2.60)
[2022-09-23 13:04] LABS: PROTHROMBIN TIME 10.3 SECONDS (9.0-12.0)
[2022-09-23 16:20] LABS: URINE APPEARANCE CLEAR; URINE COLOR LIGHT YELLOW
[2022-09-23 16:21] LABS: URINE BILIRUBIN NEGATIVE (NEGATIVE); URINE BLOOD TRACE (NEGATIVE); URINE GLUCOSE NEGATIVE (NEGATIVE); URINE KETONE NEGATIVE (NEGATIVE); URINE LEUKOCYTE ESTERASE TRACE (NEGATIVE); URINE NITRATE NEGATIVE (NEGATIVE); URINE PROTEIN(semi-quant) TRACE (NEGATIVE); URINE UROBILINOGEN NORMAL (NORMAL)
== END ==
LOC: LAB 12:07
PROVIDERS: Internal Medicine
DX: Z01.818 Encounter for other preprocedural examination (principal); I25.10 Atherosclerotic heart disease of native coronary artery without angina pectoris

== ENCOUNTER → 2022-09-24 | Outpatient (CLI) | payer MEDICARE, BC | LOC: CARDREHAB 10:58 | DX: I25.10 Atherosclerotic heart disease of native coronary artery without angina pectoris (principal) | CPT/HCPCS: A9500; J2785 ==

== ENCOUNTER → 2022-09-27 | Outpatient (CLI) | payer MEDICARE, BC ==
[~2022-09-27] VITALS: Ht 165.1 cm; Wt 64.4 kg
--- NOTE | 2022-09-27 17:00 | NUR ---
Patient ambulatory to room 5 for outpatient mcbride catheter assessment/replacement. Patient reports urine leakage and pain since insertion approximately one week ago. States pain stopped today. Patient carrying mcbride drainage bag. Securement device is intact to right thigh. Catheter with mcbride bulb inflated is outside the body and connected to the securement device. Patient reports urinating multiple times today, mostly incontinent voids. Patient questioning need for reinsertion of mcbride. Attempts to void at this time but is unable to. Dr. Camargo notified, orders post void residual and cath UA. Patient has uterine prolapse, pelvic organs visible, gently pushed back inside. Indwelling urinary catheter placed without difficulty. Patient denies pain with insertion. Approximately 200 ml urine drainged after insertion. Patient denies any pain or discomfort with catheter in place. States "I think I might be ok to leave this one in, it doesn't hurt at all, the last one hurt right away when they put it in, this one doesn't hurt at all." Patient expressed concerns for pain or mcbride coming out on it's own again if pelvic organs shift. Spoke with Dr. Camargo who gives verbal orders to leave mcbride catheter in place, daily assessment of mcbride catheter with replacement if needed PRN until surgery that is schedueld for 10/01/22. Education regarding care for mcbride catheter at home provided. Instructed patient call or return if she has questions, if mcbride catheter becomes painful, or falls out. Patient verbalizes understanding, all questions answered. Ambulatory out of facility without incident. Steady gait noted. Indwelling urinary catheter to dependent drainage. Mcbride is free flowing without kinks or twists. Securment device intact to left thigh. Nurses station phone number given to patient.
[2022-09-27 17:40] VITALS: BP 114/61
== END ==
LOC: AMSURD 16:10
DX: R33.8 Other retention of urine (principal)

== ENCOUNTER 2022-11-14 11:09 | Outpatient (RCR) | payer MEDICARE, BC ==
[~2022-11-14] VITALS: Ht 165.1 cm; Wt 64.4 kg
[2022-11-14 11:40] VITALS: BP 118/65
== END 2022-11-26 | disposition home or self-care (01) ==
LOC: AMSURD
DX: Z45.2 Encounter for adjustment and management of vascular access device (principal)

== ENCOUNTER → 2023-04-29 | Outpatient (CLI) | payer MEDICARE, BC ==
[~2023-04-29] VITALS: Ht 165.1 cm; Wt 64.4 kg
[2023-04-29 14:15] VITALS: BP 122/66
== END ==
LOC: AMSURD 14:07
DX: R33.8 Other retention of urine (principal)

== ENCOUNTER → 2023-05-11 | Outpatient (CLI) | payer MEDICARE, BC ==
[~2023-05-11] VITALS: Ht 165.1 cm; Wt 64.4 kg
[2023-05-11 14:01] VITALS: BP 130/69
--- NOTE | 2023-05-11 14:03 | NUR ---
PT PRESENTS FOR MONTHLY LEDESMA CHANGE. 16F 30ML LEDESMA PLACED WITHOUT DIFFICULTY.
== END ==
LOC: AMSURD 13:09
DX: Z45.2 Encounter for adjustment and management of vascular access device (principal)

== ENCOUNTER → 2023-06-09 | Outpatient (CLI) | payer MEDICARE, BC | LOC: AMSURD 12:12 | DX: R33.8 Other retention of urine (principal) ==

== ENCOUNTER → 2023-09-15 | Outpatient (CLI) | payer MEDICARE, BC | LOC: AMSURD 10:02 | DX: R33.8 Other retention of urine (principal) ==

== ENCOUNTER → 2023-11-15 | Outpatient (CLI) | payer MEDICARE, BC ==
[~2023-11-15] VITALS: Ht 165.1 cm; Wt 64.4 kg
[2023-11-15 13:55] VITALS: BP 140/76
[2023-11-15 15:14] LABS: PH-URINE 5.5 (5.0 - 8.0); URINE APPEARANCE CLOUDY (CLEAR); URINE BILIRUBIN NEGATIVE (NEGATIVE); URINE COLOR YELLOW (YELLOW); URINE GLUCOSE NEGATIVE (NEGATIVE); URINE KETONE NEGATIVE (NEGATIVE); URINE PROTEIN(semi-quant) 1+ (NEGATIVE)
[2023-11-15 15:15] LABS: URINE BLOOD 2+ (NEGATIVE); URINE LEUKOCYTE ESTERASE 1+ (NEGATIVE); URINE NITRATE POSITIVE (NEGATIVE); URINE WBC >50 /hpf (0-3)
== END ==
LOC: AMSURD 13:31
PROVIDERS: Internal Medicine
DX: R33.8 Other retention of urine (principal)

== ENCOUNTER → 2023-11-15 | Outpatient (CLI) | payer MEDICARE, BC | LOC: LAB 13:33 | DX: R33.8 Other retention of urine (principal) ==

== ENCOUNTER → 2024-03-14 | Outpatient (CLI) | payer MEDICARE, BC ==
[~2024-03-14] MED LIST changes: +ESTRACE0.1 MG/GM VG; +MUCINEX DM 60 M1 TER PO; +TRIMPEX 100MG100 MG PO; +ZYRTEC ALLERGY10 MG PO
[2024-03-14 11:36] LABS: CALCIUM 9.9 mg/dL (8.3-10.5)
== END ==
LOC: LAB 11:12
PROVIDERS: Internal Medicine Cardiovascular Disease
DX: I71.43 Infrarenal abdominal aortic aneurysm, without rupture (principal); I71.23 Aneurysm of the descending thoracic aorta, without rupture; Z98.890 Other specified postprocedural states; Z86.79 Personal history of other diseases of the circulatory system

== ENCOUNTER 2024-03-17 12:50 | Outpatient (RCR) | payer MEDICARE, BC ==
--- NOTE | 2024-03-09 13:15 | NUR ---
Pt mcbride bag was leaking, changed mcbride bag only.
[2024-03-09 17:51] VITALS: BP 127/82
[~2024-03-17] VITALS: Ht 165.1 cm; Wt 64.4 kg
[2024-03-17 13:15] VITALS: BP 125/80
[2024-05-02] MEDS ORDERED: LEVETIRACETAM500 M2 PO (14:51)
== END 2024-03-28 | disposition home or self-care (01) ==
LOC: AMSURD → EDSTATUS 12:50
DX: R33.8 Other retention of urine (principal)

== ENCOUNTER → 2024-03-29 | Outpatient (CLI) | payer MEDICARE, BC ==
[2024-03-29 17:01] LABS: URINE APPEARANCE CLOUDY (CLEAR); URINE BILIRUBIN NEGATIVE (NEGATIVE); URINE COLOR YELLOW (YELLOW); URINE GLUCOSE NEGATIVE (NEGATIVE); URINE KETONE NEGATIVE (NEGATIVE); URINE NITRATE POSITIVE (NEGATIVE); URINE PROTEIN(semi-quant) 1+ (NEGATIVE)
[2024-03-29 17:02] LABS: URINE BLOOD 1+ (NEGATIVE); URINE LEUKOCYTE ESTERASE 1+ (NEGATIVE); URINE WBC 31-50 /hpf (0-3)
== END ==
LOC: LAB 16:33
PROVIDERS: Internal Medicine
DX: R33.8 Other retention of urine (principal)

== ENCOUNTER 2024-05-06 13:01 | Outpatient (RCR) | payer MEDICARE, BC ==
[2024-05-02 14:47] VITALS: BP 142/71
--- NOTE | 2024-05-02 15:27 | NUR ---
PT ARRIVED AMBULATORY FOR MONTHLY INDWELLING LEDESMA CATHETER CHANGE. PT MOVING SLOWER DUE TO RECENT FALL ON HER PORCH WHICH CAUSED A BRAIN BLEED AND WAS HOSPITALIZED FOR SEVERAL DAYS. URINE IN EXISTING CATHETER IS PALE YELLOW WITH SOME SEDIMENT PRESENT. DENIES ANY FEVER, DISCOMFORT, OR BLADDER SPASMS LATELY. REMAINS ON DAILY LOW DOSE ANTIBIOTIC. REMOVED 30ML FROM INDWELLING CATHETER BALLOON AND DC'D CATHETER WITHOUT COMPLICATIONS. PT YUNIOR WELL. SEE PROCESS INTERVENTION REGARDING INSERTION OF NEW 16FR CATH WITH 30ML BALLOON. PT YUNIOR WELL. DENIES ANY DISCOMFORT. LEFT FACILITY AMBULATORY. GRANDDAUGHTER DRIVING HER HOME.
[~2024-05-06] VITALS: Ht 165.1 cm; Wt 64.4 kg
[~2024-05-06 13:01] MED LIST changes: +LEVETIRACETAM500 M2 PO
[2024-05-06 13:39] VITALS: BP 126/71
--- NOTE | 2024-05-06 13:40 | NUR ---
PT CALLED IN TO THE HOSPITAL BECAUSE HER LEDESMA CATHETER HAD COME OUT. PT INSTRUCTED TO COME IN AND WE WOULD REPLACE IT. PT AMBULATORY TO ROOM 5 FOR THIS. PT'S LEDESMA WAS COMPLETELY OUT WITH THE BALOON NOT INFLATED. PT STATES THIS LEDESMA WAS ONLY PLACED A FEW DAYS AGO AND SHE HAD NOTICED MORE LEAKING THAN NORMAL. NEW 16F LEDESMA WITH A 30 CC BALLOON THAT WAS ONLY INFLATED WITH 10 CC'S WAS PLACED. URINE RETURNED AND LEDESMA WAS SECURED TO LEG. PT'S LABIA AND FOLDS WERE EXCORIATED. GOOD JESÚS CARE GIVEN AND PATIENT STATES SHE HAS MEDICATION SHE USES AT HOME BUT HAS NOT BEEN ABLE TO USE IT DUE TO BEING HOSPITALIZED LAST WEEK. PT INSTRUCTED TO CONTINUE USING THAT MEDICATION AND PERFORMING GOOD JESÚS CARE. PT THEN AMBULATED OUT TO PRIVATE VEHICLE.
== END 2024-05-28 | disposition home or self-care (01) ==
LOC: AMSURD
DX: R33.8 Other retention of urine (principal)
CPT/HCPCS: A4314

== ENCOUNTER → 2024-05-08 | Outpatient (CLI) | payer MEDICARE, BC | LOC: RAD 11:00 | DX: M25.521 Pain in right elbow (principal); M79.641 Pain in right hand; M25.531 Pain in right wrist; M54.12 Radiculopathy, cervical region ==

== ENCOUNTER → 2024-05-22 | Outpatient (CLI) | payer MEDICARE, BC | LOC: RAD 10:25 | DX: M50.121 Cervical disc disorder at C4-C5 level with radiculopathy (principal); M50.122 Cervical disc disorder at C5-C6 level with radiculopathy; M48.02 Spinal stenosis, cervical region; M25.78 Osteophyte, vertebrae ==

== ENCOUNTER 2024-06-15 13:16 | Outpatient (RCR) | payer MEDICARE, BC ==
[2024-06-07 10:00] VITALS: BP 130/70
--- NOTE | 2024-06-07 11:11 | NUR ---
Nela is here today for her monthly mcbride catheter replacement. Tolerated procedure well. Denies any discomfort. Used a 16 Fr catheter with a 30ml balloon. Filled with 30ml sterile saline.
[~2024-06-15] VITALS: Ht 165.1 cm; Wt 64.4 kg
--- NOTE | 2024-06-15 14:00 | NUR ---
PT AMBULATED TO ED ROOM 3. NEW LEDESMA BAG PLACED. PT ALERT AND ORIENTED. NO OTHER CONCERNS THIS VIST.
== END 2024-06-28 | disposition home or self-care (01) ==
LOC: AMSURD
DX: R33.8 Other retention of urine (principal)
CPT/HCPCS: A4314

== ENCOUNTER → 2024-07-20 | Outpatient (CLI) | payer MEDICARE, BC ==
[~2024-07-20] MED LIST changes: +CALCIUM500 M1 PO; +CEFPODOXIME PR100 M1 PO; +MUCUS RELIEF E600 MG PO
[2024-07-20 15:22] LABS: URINE APPEARANCE TURBID (CLEAR); URINE BILIRUBIN 1+ (NEGATIVE); URINE BLOOD 1+ (NEGATIVE); URINE COLOR YELLOW (YELLOW); URINE GLUCOSE NEGATIVE (NEGATIVE); URINE KETONE NEGATIVE (NEGATIVE); URINE NITRATE NEGATIVE (NEGATIVE); URINE PROTEIN(semi-quant) 2+ (NEGATIVE)
[2024-07-20 15:23] LABS: URINE LEUKOCYTE ESTERASE 1+ (NEGATIVE); URINE WBC 31-50 /hpf (0-3)
== END ==
LOC: LAB 14:47
DX: R33.8 Other retention of urine (principal)

== ENCOUNTER → 2024-07-24 | Outpatient (CLI) | payer MEDICARE, BC ==
[~2024-07-24] MED LIST changes: -CALCIUM500 M1 PO; -CEFPODOXIME PR100 M1 PO; -MUCUS RELIEF E600 MG PO
== END ==
LOC: RAD 15:24
DX: M41.86 Other forms of scoliosis, lumbar region (principal); M47.816 Spondylosis without myelopathy or radiculopathy, lumbar region; M43.9 Deforming dorsopathy, unspecified

== ENCOUNTER → 2024-07-31 | Outpatient (CLI) | payer MEDICARE, BC | LOC: RAD 07:40 | DX: S22.080A Wedge compression fracture of T11-T12 vertebra, initial encounter for closed fracture (principal); M48.061 Spinal stenosis, lumbar region without neurogenic claudication; I71.40 Abdominal aortic aneurysm, without rupture, unspecified ==

== ENCOUNTER → 2024-08-27 | Outpatient (CLI) | payer MEDICARE, BC | LOC: LAB 11:20 | DX: R33.8 Other retention of urine (principal) ==

== ENCOUNTER 2024-09-17 19:44 | Inpatient (IN) | payer MEDICARE, BC ==
[~2024-09-17] VITALS: Ht 162.6 cm; Wt 60.0 kg
[~2024-09-17 19:44] MED LIST changes: -CALCIUM500 M1 PO; -MUCUS RELIEF E600 MG PO
[2024-09-17] MEDS ORDERED: CALCIUM500 M1 PO (19:57)
[2024-09-17] MEDS ORDERED: Ondansetron 4 MG/2 ML VIAL IV PRN (20:00)
[2024-09-17] MEDS ORDERED: MUCUS RELIEF E600 MG PO (20:00)
[2024-09-17] MEDS ORDERED: Bisacodyl 5 MG TAB PO PRN (20:00)
[2024-09-17] MEDS ORDERED: Formoterol Neb Soln 20 MCG/2 ML UD IH SCH (21:00)
[2024-09-17] MEDS ORDERED: clonazePAM 0.5 MG TABLET PO SCH (21:00)
[2024-09-17] MEDS ORDERED: traMADol 50 MG TAB PO SCH (21:00)
[2024-09-17] MEDS ORDERED: Budesonide Neb Soln 0.5 MG/2 ML AMP IH SCH (21:00)
[2024-09-17] MEDS ORDERED: Docusate Sodium 100 MG CAP PO SCH (21:00)
[2024-09-17] MEDS ORDERED: Potassium Chloride 100 ML IV SCH (21:30)
[2024-09-17 21:44] VITALS: BP 128/66
--- NOTE | 2024-09-17 22:08 | NUR ---
PT ADMITTED FROM ER. ADMISSION ASSESMENT COMPLETE. PT ORIENTATED TO HOSPITAL ROOM/RULES. IV FLUIDS RUNNING. NO OTHER WANTS/NEEDS AT THIS TIME. BED ALARM ON, CALL LIGHT WITHIN REACH.
--- NOTE | 2024-09-17 22:45 | NUR ---
Received report from Fransico VALENCIA.
[2024-09-18 02:49] LABS: ALBUMIN 3.2 g/dL (3.4-4.8); SODIUM 140 mmol/L (136-145)
[2024-09-18 02:52] LABS: GLUCOSE 90 mg/dL (65-105); TOTAL PROTEIN 6.5 g/dL (6.2-8.1)
[2024-09-18 02:53] LABS: CARBON DIOXIDE 20 mmol/L (23-31)
[2024-09-18 02:54] LABS: TOTAL BILIRUBIN 0.5 mg/dL (0.2-1.2)
[2024-09-18 02:57] LABS: AST-SGOT 21 U/L (5-34)
[2024-09-18 02:58] LABS: ALT/SGPT 10 U/L (0-55)
--- NOTE | 2024-09-18 02:58 | NUR ---
Called erika ARRIOLA and reported the Potassium level was 3.0. Received orders for 4 more bags of IV potassium.
[2024-09-18] MEDS ORDERED: Potassium Chloride 100 ML IV SCH (03:00)
[2024-09-18 03:01] VITALS: BP 130/75
--- NOTE | 2024-09-18 05:10 | NUR ---
Pt bed alarm sounds, when nurse enters room pt is standing at bedside adjusting her pants. Pt had IV line taught and was pulling on it. 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 PT the lets nurse know that her catheter leaks and he pad needed to be changed. Nurse expalins that the staff was unaware that her catheter leaked and that we would be happy to help her if she lets staff know. Pt states that she would call, but she is concerned that will have skin break down. Reassured pt that staff would be educated on to check on her now that staff knows about the mcbride issue. Call light was in reach of pt when nurse left room.
--- NOTE | 2024-09-18 07:07 | NUR ---
Report given to Wave RN
[2024-09-18] MEDS ORDERED: Multivitamin TAB PO SCH (09:00)
[2024-09-18] MEDS ORDERED: Folic Acid 1 MG TAB PO SCH (09:00)
[2024-09-18] MEDS ORDERED: Albuterol 0.083% Nebule (2.5 MG/3 ML) IH SCH (09:00)
[2024-09-18] MEDS ORDERED: Calcium Carbonate 500 MG TAB PO SCH (09:00)
[2024-09-18] MEDS ORDERED: MAGNESIUM CHLORIDE 64 MG PO SCH (09:00)
[2024-09-18] MEDS ORDERED: Cholecalciferol (Vit D3) 25 MCG (1,000 Units) TAB PO SCH (09:00)
[2024-09-18] MEDS ORDERED: Cetirizine 10 MG TAB PO SCH (09:00)
--- NOTE | 2024-09-18 09:44 | NUR ---
PT IS A PLEASANT 84 YO FEMALE. PT REPORTS NOT SLEEPING LAST EVENING. THIS NURSE ONCE POTASSIUM INFUSION COMPLETED, THIS NURSE STOPPED FLUIDS FOR FURTHER ASSESMENT OF IV AND POSSIBLE NEW INT SITE. PT REPORTS PAIN IN HER BACK, WORSENING WITH MOVEMENT.
[2024-09-18 10:29] LABS: BASO # 0.03 K/mm3 (0.02-0.10); EOS # 0.09 K/mm3 (0.04-0.40); EOS % 0.8 % (1.0-5.0); HEMATOCRIT 34.4 % (37.0-47.0); LYMPH# 2.84 K/mm3 (1.50-4.00); MEAN CELL VOLUME 98 fl (78-100); MEAN CORPUSCULAR HEMOGLOBIN 31 pg (27-31); MEAN CORPUSCULAR HGB CONC 32 g/dL (33-37); MEAN PLATELET VOLUME 9.9 fl (7.4-10.4); MONO # 0.77 K/mm3 (0.20-0.80); NEU # 7.31 K/mm3 (1.40-6.50); PLATELET COUNT 252 K/mm3 (130-400); RED BLOOD COUNT 3.53 M/mm3 (4.10-5.30); WHITE BLOOD COUNT 11.1 K/mm3 (4.8-10.8)
[2024-09-18 10:37] LABS: ALBUMIN 3.4 g/dL (3.4-4.8); TOTAL PROTEIN 6.9 g/dL (6.2-8.1)
[2024-09-18 10:41] LABS: TOTAL BILIRUBIN 0.5 mg/dL (0.2-1.2)
[2024-09-18 10:46] LABS: MAGNESIUM 1.7 mg/dL (1.60-2.60)
[2024-09-18 10:59] VITALS: BP 117/69
[2024-09-18] MEDS ORDERED: Potassium Bicarbonate/Citrate 20 MEQ Effervescent TAB PO SCH (11:23)
[2024-09-18] MEDS ORDERED: NS & 20mEq KCl 1,000 ML IV SCH (13:45)
--- NOTE | 2024-09-18 14:20 | NUR ---
MEDICATION PT REPORTS THAT HER PAIN HAS BEEN HOVERING AROUND 5 AND 6 CONSISTENTLY. PT AND FAMILY STATE THAT THE PT USUALLY TAKES TYLENOL ALONG WITH HER TRAMADOL. FAMILY STATES DR. RUIZ PRESCRIBED IT THIS WAY.
[2024-09-18] MEDS ORDERED: Iohexol 300 - 100 ML VIAL IV ONE (15:26)
[2024-09-18] MEDS ORDERED: NS 100 ML IV SCH (15:27)
[2024-09-18 15:36] VITALS: BP 101/64
[2024-09-18] MEDS ORDERED: Dextrose/Magnesium Sulfate 100 ML IV SCH (17:30)
[2024-09-18 19:00] VITALS: BP 117/64
[2024-09-18 19:00] LABS: URINE APPEARANCE CLOUDY (CLEAR); URINE BILIRUBIN NEGATIVE (NEGATIVE); URINE BLOOD 2+ (NEGATIVE); URINE COLOR YELLOW (YELLOW); URINE GLUCOSE NEGATIVE (NEGATIVE); URINE KETONE NEGATIVE (NEGATIVE); URINE LEUKOCYTE ESTERASE 1+ (NEGATIVE); URINE NITRATE NEGATIVE (NEGATIVE); URINE PROTEIN(semi-quant) 1+ (NEGATIVE); URINE WBC >50 /hpf (0-3)
--- NOTE | 2024-09-18 19:19 | NUR ---
Report recived from Wave RN
--- NOTE | 2024-09-18 19:40 | NUR ---
Pt laying in bed watching TV. IV Magnissium running at this time. Pt reports chronic back pain 02/05. Pt reports that she had a good day. Educated pt on when pain meds are schduled. Checked pt incontinet pad and it is dry at this time. Encouraged pt to call if assistance is needed. Bed alarms on for safety. Call light in reach of pt, when nure leaves room.
--- NOTE | 2024-09-18 20:40 | NUR ---
Order for rochepin is ordered IM spoke with Loida ARRIOLA about if medication should be IM orIV. Medication was to be IV, Julianna Harris states she will change order
[2024-09-18] MEDS ORDERED: cefTRIAXone 1 G in Water For Injection,Sterile 10 ML IV SCH ×2 (22:00)
[2024-09-18 23:00] VITALS: BP 101/56
[2024-09-19 03:00] VITALS: BP 120/67
--- NOTE | 2024-09-19 04:14 | NUR ---
IV fluids completed.
--- NOTE | 2024-09-19 06:54 | NUR ---
Report given to Wave RN
[2024-09-19 07:21] LABS: BASO # 0.02 K/mm3 (0.02-0.10); EOS # 0.17 K/mm3 (0.04-0.40); EOS % 2.1 % (1.0-5.0); HEMATOCRIT 30.4 % (37.0-47.0); HEMOGLOBIN 9.5 g/dL (12.5-16.0); LYMPH# 1.79 K/mm3 (1.50-4.00); MEAN CELL VOLUME 99 fl (78-100); MEAN CORPUSCULAR HEMOGLOBIN 31 pg (27-31); MEAN CORPUSCULAR HGB CONC 31 g/dL (33-37); MEAN PLATELET VOLUME 9.5 fl (7.4-10.4); MONO # 0.83 K/mm3 (0.20-0.80); NEU # 5.31 K/mm3 (1.40-6.50); PLATELET COUNT 203 K/mm3 (130-400); RED BLOOD COUNT 3.06 M/mm3 (4.10-5.30); RED CELL DISTRIBUTION WIDTH 19.2 % (11.5-14.5); WHITE BLOOD COUNT 8.2 K/mm3 (4.8-10.8)
[2024-09-19 07:30] VITALS: BP 100/61
[2024-09-19 11:25] VITALS: BP 91/52
[2024-09-19] MEDS ORDERED: Lidocaine 4% Topical Patch TP SCH (13:12)
[2024-09-19] MEDS ORDERED: oxyCODONE 5 MG TAB PO PRN (13:15)
--- NOTE | 2024-09-19 13:30 | NUR ---
Rounded on patient to discuss plan of care with future discharge plans and options. Pt voices frustrations regarding her back pain. "I went to go see Dr. Camargo for this pain and ended up in the hospital for something else" She also reports she would like to be able to go home and follow up wiht Dr. Camargo as she wants his recommendations on the next steps for her regarding the back pain. Aylin DASILVA updated on pt concerns.
[2024-09-19 15:20] VITALS: BP 112/66
[2024-09-19] MEDS ORDERED: Sennosides/Docusate 8.6-50 MG TAB PO PRN (16:00)
[2024-09-19] MEDS ORDERED: Polyethylene Glycol 3350 Powder 17 GM PACKET PO PRN (16:00)
--- NOTE | 2024-09-19 18:25 | NUR ---
Pt admitted as acute, being treated for hypokalemia and hypomagnesia. Throughout the pt has had back pain. Back pain increased to a numeric level of 8 and 9 today. This nurse administered Ultram and in 60 min, administered Roxicodone 5mg. Pt currently has lidocaine patches. Pt reports when she becomes constipated, her back pain increases. ABY Geronimo ordered Miralax and Sennacot. Medicataions offered to pt, pt declined and wants to try in the morning.
--- NOTE | 2024-09-19 18:55 | NUR ---
PAIN UPDATE PT REPORTS FELLING MUCH BETTER AFTER TAKING ROXICODONE. NUMERIC SCORE OF 5.
[2024-09-19 19:00] VITALS: BP 109/64
[2024-09-19] MEDS ORDERED: cefTRIAXone 1 G in Water For Injection,Sterile 10 ML IV SCH (20:00)
--- NOTE | 2024-09-19 21:40 | NUR ---
Report received from David RN. Patient rests supine in bed. A/O to self, and place. Did not know current month or year. Struggled to tell this nurse where she was from. [place]. Rates pain to back 2-11/05. "I've been sleeping". Assessment completed. TELE in place. HRR in 80's. Takes scheduled PO medications whole without difficulty. IV Rocephin given SIVP. Site patent to LFA. Nebulizer tx given. Mcbride cath patent to DD with yellow milky urine noted. Patient has chronic mcbride. Denies questions wants or needs at this time. Bed alarm on. Call light in reach.
[2024-09-19 22:31] VITALS: BP 108/62
--- NOTE | 2024-09-20 | NUR ---
Rests quietly with eyes closed. No signs of pain/distress. Bed alarm on. Call light in reach.
[2024-09-20 03:10] VITALS: BP 119/72
--- NOTE | 2024-09-20 07:06 | NUR ---
Report to David VALENCIA.
[2024-09-20 07:35] VITALS: BP 128/76
--- NOTE | 2024-09-20 08:00 | NUR ---
THIS NURSE ASSESED PT. PT REPORTS HER PAIN WHEN ATTEMPTING TO MOVE, SHOOTS UP TO A NUMERIC LEVEL OF 10. WHEN RESTING PT REPORTS A NUMERIC LEVEL OF 8. THIS NURSE ADMINISTERED PRN ANALGESIC ALONG WITH SCHEDULED MEDICATIONS. PT HAS STATED VERBALLY SHE WANTS TO GO HOME TODAY.
[2024-09-20 09:23] LABS: CALCIUM 8.8 mg/dL (8.3-10.5)
[2024-09-20 09:25] LABS: TOTAL PROTEIN 6.4 g/dL (6.2-8.1)
[2024-09-20 09:26] LABS: TOTAL BILIRUBIN 0.4 mg/dL (0.2-1.2)
[2024-09-20] MEDS ORDERED: NS 1,000 ML IV SCH ×2 (09:45→17:15)
[2024-09-20 09:56] LABS: ALBUMIN 2.8 g/dL (3.4-4.8)
[2024-09-20 11:30] VITALS: BP 131/86
--- NOTE | 2024-09-20 11:39 | NUR ---
THIS NURSE CALLED PTS FAMILT TO GIVE AN UPDATE ON PATIENT. THIS NURSE SPOKE WITH TERESA, PTS TYRESE. PT WOULD LIKE A CLEAN SANTOS OF PANTS. PTS POTASSIUM IS AT AN OUT OF RANGE HIGH LEVEL OF 5.6, DR. BLUE ORDERED ONE LITER OF NS AND TO REPEAT LABS AT 1500. TERESA VERBALIZED UNDERSTANDING. PT IS AWARE OF NURSE TO FAMILY COMMUNICATION.
[2024-09-20 15:06] VITALS: BP 120/68
[2024-09-20 16:28] LABS: CALCIUM 8.7 mg/dL (8.3-10.5)
[2024-09-20 19:00] VITALS: BP 111/58
--- NOTE | 2024-09-20 19:09 | NUR ---
PTS FAMILY VISITED AT APPROX. 1430- 1530. PTS FAMILY UPDATED ON PLAN OF CARE. PTS POTASSIUM IS OUT OF RANGE, HIGH. LABS TO BE RE CHECKED IN THE AM. WHEN PTS LABS RETURN TO NORMAL LIMITS, PT SHALL BE DISCHARGED. PT AND FAMILY ARE AGREEABLE TO THIS. GAVE SHIFT REPORT TO ERIK ALICIA.
--- NOTE | 2024-09-20 20:30 | NUR ---
Report receive from David VALENCIA. Patient rests in bed with eyes closed. IVF infusing NS at 250 ML/HR. Site patent to [place] deal. Awakens easily for assessment and HS medications. Takes PO medications whole without difficulty. Ramirez cath patent to CYNTHIA with yellow cloudy urine in bag. Denies questions wants or needs. Bed alarm on. Call light in reach.
--- NOTE | 2024-09-20 22:55 | NUR ---
IVF completed. Resting quietly with eyes closed.
[2024-09-20 23:26] VITALS: BP 106/64
[2024-09-21 03:00] VITALS: BP 113/65
--- NOTE | 2024-09-21 05:22 | NUR ---
Got some rest per her report. AM medication taken. Pain when repositoned in bed. Rates 6/10 then 4/10. PRN Oxycodone taken at this time.
--- NOTE | 2024-09-21 07:05 | NUR ---
Report to Jessica VALENCIA.
[2024-09-21] MEDS ORDERED: CEFPODOXIME PR100 M1 PO (07:53)
[2024-09-21 08:09] VITALS: BP 130/76
[2024-09-21 08:22] LABS: ALBUMIN 3.1 g/dL (3.4-4.8)
[2024-09-21 08:23] LABS: CALCIUM 9.1 mg/dL (8.3-10.5)
[2024-09-21 08:26] LABS: TOTAL BILIRUBIN 0.5 mg/dL (0.2-1.2)
== END 2024-09-21 10:47 | disposition home or self-care (01) | DRG 641 ==
LOC: MED/SURG 19:44
PROVIDERS: Family Medicine; ADMIT Physician Assistant
DX: E83.42 Hypomagnesemia (principal); E87.6 Hypokalemia; E87.5 Hyperkalemia; R07.9 Chest pain, unspecified; K41.90 Unilateral femoral hernia, without obstruction or gangrene, not specified as recurrent; M54.9 Dorsalgia, unspecified; E78.5 Hyperlipidemia, unspecified; M06.9 Rheumatoid arthritis, unspecified
CPT/HCPCS: A4314; J0696; J3475; J3480; J7030; J8610; Q9967

== ENCOUNTER → 2024-09-17 | Outpatient (CLI) | payer MEDICARE, BC ==
[~2024-09-17] MED LIST changes: +CALCIUM500 M1 PO; +MUCUS RELIEF E600 MG PO
[2024-09-17 16:23] LABS: ALBUMIN 3.9 g/dL (3.4-4.8)
[2024-09-17 16:24] LABS: CALCIUM 10.1 mg/dL (8.3-10.5)
[2024-09-17 16:25] LABS: TOTAL PROTEIN 8.1 g/dL (6.2-8.1)
[2024-09-17 16:27] LABS: TOTAL BILIRUBIN 0.5 mg/dL (0.2-1.2)
[2024-09-17 16:32] LABS: MAGNESIUM 1.7 mg/dL (1.60-2.60)
[2024-09-17 18:42] LABS: BASO # 0.02 K/mm3 (0.02-0.10); EOS # 0.05 K/mm3 (0.04-0.40); EOS % 0.4 % (1.0-5.0); HEMATOCRIT 34.8 % (37.0-47.0); HEMOGLOBIN 11.3 g/dL (12.5-16.0); MEAN CELL VOLUME 95 fl (78-100); MEAN CORPUSCULAR HEMOGLOBIN 31 pg (27-31); MEAN CORPUSCULAR HGB CONC 33 g/dL (33-37); MEAN PLATELET VOLUME 10.1 fl (7.4-10.4); MONO # 0.96 K/mm3 (0.20-0.80); NEU # 8.69 K/mm3 (1.40-6.50); PLATELET COUNT 301 K/mm3 (130-400); RED BLOOD COUNT 3.67 M/mm3 (4.10-5.30); RED CELL DISTRIBUTION WIDTH 18.5 % (11.5-14.5); WHITE BLOOD COUNT 11.9 K/mm3 (4.8-10.8)
== END ==
LOC: LAB 15:57
PROVIDERS: Internal Medicine
DX: K90.9 Intestinal malabsorption, unspecified (principal); I25.10 Atherosclerotic heart disease of native coronary artery without angina pectoris; E78.2 Mixed hyperlipidemia; M06.9 Rheumatoid arthritis, unspecified; R73.9 Hyperglycemia, unspecified

== ENCOUNTER → 2024-09-24 | Outpatient (CLI) | payer MEDICARE, BC ==
[~2024-09-24] MED LIST changes: +CALCIUM500 M1 PO; +CEFPODOXIME PR100 M1 PO; +MUCUS RELIEF E600 MG PO
[2024-09-24 12:06] LABS: ALBUMIN 3.6 g/dL (3.4-4.8)
[2024-09-24 12:07] LABS: CALCIUM 9.5 mg/dL (8.3-10.5)
[2024-09-24 12:08] LABS: TOTAL PROTEIN 8.1 g/dL (6.2-8.1)
[2024-09-24 12:10] LABS: TOTAL BILIRUBIN 0.4 mg/dL (0.2-1.2)
[2024-09-24 12:15] LABS: MAGNESIUM 1.68 mg/dL (1.60-2.60)
[2024-09-24 12:22] LABS: PH-URINE 5.5 (5.0 - 8.0); URINE APPEARANCE SLIGHTLY CLOUDY (CLEAR); URINE BILIRUBIN NEGATIVE (NEGATIVE); URINE BLOOD TRACE-INTACT (NEGATIVE); URINE COLOR YELLOW (YELLOW); URINE GLUCOSE NEGATIVE (NEGATIVE); URINE KETONE NEGATIVE (NEGATIVE); URINE LEUKOCYTE ESTERASE 1+ (NEGATIVE); URINE MUCUS PRESENT (NOT PRESENT); URINE NITRATE NEGATIVE (NEGATIVE); URINE PROTEIN(semi-quant) 1+ (NEGATIVE); URINE WBC 16-30 /hpf (0-3)
== END ==
LOC: AMSURD 11:24 → LAB 11:24
PROVIDERS: Internal Medicine
DX: E87.6 Hypokalemia (principal); R33.8 Other retention of urine

== ENCOUNTER → 2024-10-11 | Outpatient (CLI) | payer MEDICARE, BC ==
[~2024-10-11] VITALS: Ht 162.6 cm; Wt 60.0 kg
== END ==
LOC: AMSURD 14:57
DX: R33.8 Other retention of urine (principal)